=== PATIENT | female | born 1985 | race Caucasian/White ===

== ENCOUNTER → 2017-06-30 | Outpatient (CLI) | payer OTHER, MEDICAID | LOC: M.ULTRA 14:36 | DX: R22.2 Localized swelling, mass and lump, trunk (principal) ==

== ENCOUNTER → 2017-09-18 | Outpatient (CLI) | payer OTHER, MEDICAID | LOC: M.CT 11:35 | DX: N85.2 Hypertrophy of uterus (principal); N94.89 Other specified conditions associated with female genital organs and menstrual cycle; N83.202 Unspecified ovarian cyst, left side; N83.201 Unspecified ovarian cyst, right side; R10.2 Pelvic and perineal pain ==

== ENCOUNTER 2018-03-25 17:32 | Emergency (ER) | payer OTHER, MEDICAID ==
[~2018-03-25] VITALS: Ht 162.6 cm; Wt 43.5 kg
[2018-03-25 18:06] LABS: URINE BILIRUBIN NEGATIVE (Negative); URINE BLOOD NEGATIVE (Negative); URINE CLARITY CLEAR; URINE COLOR YELLOW; URINE GLUCOSE-RANDOM NEGATIVE (Negative); URINE KETONES NEGATIVE (Negative); URINE LEUKOCYTES-REFLEX NEGATIVE (Negative); URINE NITRITE-REFLEX NEGATIVE (Negative); URINE PROTEIN NEGATIVE (Negative); URINE SPECIFIC GRAVITY 1.025 (1.005-1.030); URINE UROBILINOGEN 0.2 E.U./dl (0.2-1.0)
[2018-03-25 18:12] LABS: ABSOLUTE LYMPHOCYTES 1.8 thou/uL (0.8-5.3); ABSOLUTE MONOCYTES 0.3 thou/uL (0.0-1.2); ABSOLUTE NEUTROPHILS 4.6 thou/uL (1.6-8.1); BASOPHILS 0.4 %; EOSINOPHILS 0.6 %; HEMATOCRIT 37.6 % (37.0-47.0); HEMOGLOBIN 12.7 gm/dL (12.0-15.0); LYMPHOCYTES 26.1 %; MCH 32.1 pg (26.0-34.0); MCHC 33.7 g/dL (28.0-37.0); MCV 95.4 fL (80.0-100.0); MPV 9.3 fl. (7.2-11.1); NUCLEATED RBCS 0 /100WBC; PLATELET COUNT* 168 thou/uL (150-400); POLYS 67.9 %; RBC 3.94 mil/uL (4.20-5.00); RDW-CV 12.3 % (10.5-14.5); WBC 6.8 thou/uL (4.0-11.0)
[2018-03-25 18:23] LABS: CALCIUM 8.6 mg/dL (8.5-10.1); CREATININE 0.9 mg/dL (0.6-1.3); POTASSIUM 3.6 mmol/L (3.5-5.1)
[2018-03-25 18:27] LABS: ALBUMIN 3.6 g/dL (3.4-5.0); TOTAL BILIRUBIN 0.5 mg/dL (<0.1-1.0); TOTAL PROTEIN 6.5 g/dL (6.4-8.2)
[2018-03-25 20:17] VITALS: BP 99/63
== END 2018-03-25 20:23 | disposition home or self-care (01) ==
LOC: M.ERS 17:32
PROVIDERS: Nurse Practitioner Family
DX: N83.202 Unspecified ovarian cyst, left side (principal); N83.201 Unspecified ovarian cyst, right side; K59.00 Constipation, unspecified; F17.200 Nicotine dependence, unspecified, uncomplicated; Z90.49 Acquired absence of other specified parts of digestive tract; Z88.7 Allergy status to serum and vaccine

== ENCOUNTER 2018-08-22 20:28 | Emergency (ER) | payer OTHER, MEDICAID ==
[~2018-08-22] VITALS: Ht 162.6 cm; Wt 42.6 kg
[2018-08-22] MEDS ORDERED: DEPO-PROVE150 MG/11 IM (20:55)
[2018-08-22] MEDS ORDERED: IBUPROFEN 600600 M1 PO (20:55)
[2018-08-22] MEDS ORDERED: METHOCARBAMOL500 M2 PO (20:56)
[2018-08-22 21:11] LABS: URINE BILIRUBIN NEGATIVE (Negative); URINE BLOOD NEGATIVE (Negative); URINE CLARITY CLEAR; URINE COLOR YELLOW; URINE GLUCOSE-RANDOM NEGATIVE (Negative); URINE KETONES NEGATIVE (Negative); URINE LEUKOCYTES-REFLEX NEGATIVE (Negative); URINE NITRITE-REFLEX NEGATIVE (Negative); URINE PROTEIN NEGATIVE (Negative); URINE UROBILINOGEN 0.2 E.U./dl (0.2-1.0)
[2018-08-22 21:14] LABS: ABSOLUTE LYMPHOCYTES 2.3 thou/uL (0.8-5.3); ABSOLUTE MONOCYTES 0.5 thou/uL (0.0-1.2); BASOPHILS 0.5 %; EOSINOPHILS 0.5 %; HEMATOCRIT 41.2 % (37.0-47.0); HEMOGLOBIN 13.8 gm/dL (12.0-15.0); LYMPHOCYTES 28.8 %; MCH 31.7 pg (26.0-34.0); MCHC 33.4 g/dL (28.0-37.0); MPV 9.1 fl. (7.2-11.1); NUCLEATED RBCS 0 /100WBC; PLATELET COUNT* 169 thou/uL (150-400); POLYS 64.2 %; RBC 4.34 mil/uL (4.20-5.00); RDW-CV 11.9 % (10.5-14.5); WBC 7.8 thou/uL (4.0-11.0)
[2018-08-22 21:17] LABS: AMP/METHAMP Negative (Negative); BARBITURATES Negative (Negative); BENZODIAZEPINES Negative (Negative); COCAINE Negative (Negative); METHADONE Negative (Negative); OPIATES Negative (Negative); PCP Negative (Negative); THC Negative (Negative)
[2018-08-22 21:20] LABS: ANION GAP 7 mmol/L (7-16); BUN 15 mg/dL (7-18); CALCIUM 8.5 mg/dL (8.5-10.1); CHLORIDE 107 mmol/L (98-107); CO2 30 mmol/L (21-32); GLUCOSE 96 mg/dL (70-99); POTASSIUM 3.9 mmol/L (3.5-5.1); SODIUM 144 mmol/L (136-145)
[2018-08-22 21:32] LABS: ALKALINE PHOSPHATASE 36 U/L (46-116); SGOT 12 U/L (15-37); SGPT 26 U/L (30-65); TOTAL BILIRUBIN 0.8 mg/dL (<0.1-1.0); TOTAL PROTEIN 7.2 g/dL (6.4-8.2); TROPONIN-I LEVEL <0.06 ng/mL (<0.06)
[2018-08-22 23:16] VITALS: BP 95/58
--- NOTE | 2018-08-23 14:02 | EKG ---
[place] [address] ELECTROCARDIOGRAM REPORT Name: DAVID PAULSON Room: [facility]#: [id number] Admission: 08/22/18 Attend Phys: Discharge: 08/22/18 Date of : 81 Report #: [id number] THIS REPORT FOR: //name// [facility] ED Test Date: 2018-08-22 Test Time: 21:07:18 Pat Name: DAVID PAULSON Department: Room: Gender: F Youth Support Worker: ANDREIA : 1985 Requested By: Antonio Peterson Order Number: [id number] : Pankaj Whitaker Measurements Intervals [place] Rate: 64 P: 74 GA: 119 QRS: 48 QRSD: 87 T: 56 QT: 395 QTc: 408 Interpretive Statements Sinus rhythm Borderline short GA interval No previous ECG available for comparison Electronically Signed On 08-23-2018 14:02:29 CDT by Pankaj Whitaker [email or web address] <ELECTRONICALLY SIGNED> By: Pankaj Whitaker MD, [facility] 08/23/18 1402 [id number] Pankaj Whitaker MD, FACC /EPI
== END 2018-08-22 23:18 | disposition home or self-care (01) ==
LOC: M.ERS 20:28
PROVIDERS: Physician Assistant
DX: R55 Syncope and collapse (principal); F17.210 Nicotine dependence, cigarettes, uncomplicated; Z88.7 Allergy status to serum and vaccine; Z90.49 Acquired absence of other specified parts of digestive tract; Z79.899 Other long term (current) drug therapy

== ENCOUNTER → 2018-09-28 | Outpatient (CLI) | payer OTHER, MEDICAID ==
[~2018-09-28] MED LIST: DEPO-PROVE150 MG/11 IM; IBUPROFEN 600600 M1 PO; METHOCARBAMOL500 M2 PO
== END ==
LOC: M.ULTRA 15:02
DX: N83.209 Unspecified ovarian cyst, unspecified side (principal)

== ENCOUNTER 2019-07-06 20:27 | Emergency (ER) | payer OTHER ==
[~2019-07-06] VITALS: Ht 162.6 cm; Wt 48.1 kg
[2019-07-06 21:00] LABS: URINE BILIRUBIN NEGATIVE (Negative); URINE BLOOD NEGATIVE (Negative); URINE CLARITY CLEAR; URINE COLOR YELLOW; URINE GLUCOSE-RANDOM NEGATIVE (Negative); URINE KETONES NEGATIVE (Negative); URINE LEUKOCYTES-REFLEX NEGATIVE (Negative); URINE NITRITE-REFLEX NEGATIVE (Negative); URINE PROTEIN NEGATIVE (Negative); URINE SPECIFIC GRAVITY >= 1.030 (1.005-1.030); URINE UROBILINOGEN 0.2 E.U./dl (0.2-1.0)
[2019-07-06] MEDS ORDERED: BACLOFEN 10MG T10 MG PO (21:01)
[2019-07-06] MEDS ORDERED: NEURONTIN100 MG PO (21:01)
[2019-07-06] MEDS ORDERED: IBUPROFEN 400400 M1 PO (21:01)
[2019-07-06 21:23] VITALS: BP 113/79
== END 2019-07-06 21:23 | disposition home or self-care (01) ==
LOC: M.ERS 20:27
PROVIDERS: Emergency Medicine
DX: M79.602 Pain in left arm (principal); M54.2 Cervicalgia; M79.18 Myalgia, other site; Z88.7 Allergy status to serum and vaccine; Z90.49 Acquired absence of other specified parts of digestive tract